=== PATIENT | male | born 1970 | race Caucasian/White ===

== ENCOUNTER 2021-12-13 03:24 | Emergency (ER) | payer OTHER ==
[~2021-12-13 03:24] MED LIST: BACTRIM DS TAB1 EACH PO
[2021-12-13 04:01] LABS: HEMOGLOBIN 14.6 gm/dl (14.0-17.5); RED BLOOD COUNT 4.62 M/UL (4.20-5.50); WHITE BLOOD COUNT 12.4 K/UL (4.5-11.0)
[2021-12-13 04:27] LABS: BUN/CREATININE RATIO 19 (0-10)
[2021-12-13] MEDS ORDERED: VIBRAMYCIN 100100 MG PO (05:22)
[2021-12-13] MEDS ORDERED: PROVENTIL HFA6.7 GM INH (05:22)
[2021-12-13] MEDS ORDERED: PREDNISONE 10 M10 MG PO (05:22)
[2021-12-13] MEDS ORDERED: BENADRYL 25MG C25 MG PO (05:22)
== END 2021-12-13 06:10 | disposition home or self-care (01) ==
LOC: ER1 03:24
PROVIDERS: Physician Assistant
DX: J44.1 Chronic obstructive pulmonary disease with (acute) exacerbation (principal); L50.9 Urticaria, unspecified; F17.210 Nicotine dependence, cigarettes, uncomplicated; Z20.822 Contact with and (suspected) exposure to COVID-19
CPT/HCPCS: 36600; 71045; 80053; 82550; 82553; 82803; 83880; 84484; 85025; 93005; 94640; 94664; 99285; J1100; J1200; U0002